=== PATIENT | male | born 1995 | race Caucasian/White ===

== ENCOUNTER 2018-06-14 23:57 | Emergency (ER) | payer MEDICAID, OTHER ==
[2018-06-14 23:58] VITALS: BMI 17.1
[2018-06-15 00:04] VITALS: BP 153/105; PULSE 93; RESP 18; TEMP 98; O2SAT 100
--- NOTE | 2018-06-15 00:15 | ED PDOC ---
HPI: Psych/Substance Abuse Time Seen by Provider: 06/15/18 00:02 Chief Complaint (Nursing): Alcohol Ingestion History Per: Patient History/Exam Limitations: no limitations Onset/Duration Of Symptoms: Mins Modifying Factor(s): Alcohol Additional Complaint(s): PAtient brought in to ER by EMS and [place] for evaluation of ETOH abuse. Patient admits to drinking alcohol but denies drugs. States he feels fine, denies any injuries or drugs. Past Medical History Reviewed: Historical Data, Nursing Documentation, Vital Signs Vital Signs: Last Vital Signs Temp 98 F 06/15/18 00:01 Pulse 93 H 06/15/18 00:01 Resp 18 06/15/18 00:01 BP 153/105 H 06/15/18 00:01 Pulse Ox 100 06/15/18 00:01 - Medical History PMH: No Chronic Diseases - Family History Family History: States: Unknown Family Hx - Immunization History Hx Tetanus Toxoid Vaccination: No Hx Influenza Vaccination: No Hx Pneumococcal Vaccination: No - Home Medications Home Medications: Ambulatory Orders Medication Instructions Recorded Ibuprofen [Motrin] 600 mg PO Q6 PRN #20 tab 07/02/14 Oseltamivir Cap [Tamiflu] 75 mg PO BID #10 cap 07/02/14 No Known Home Med 11/05/14 - Allergies Allergies/Adverse Reactions: Allergies Allergy/AdvReac Type Severity Reaction Status Date / Time No Known Allergies Allergy Verified 06/15/18 00:01 Review of Systems ROS Statement: Except As Marked, All Systems Reviewed And Found Negative Physical Exam - Reviewed Nursing Documentation Reviewed: Yes Vital Signs Reviewed: Yes - Physical Exam Appears: Positive for: Well, Non-toxic, No Acute Distress Head Exam: Positive for: ATRAUMATIC, NORMAL INSPECTION, NORMOCEPHALIC Skin: Positive for: Normal Color, Warm, DRY Eye Exam: Positive for: EOMI, Normal appearance, PERRL ENT: Positive for: Normal ENT Inspection Neck: Positive for: Normal, Painless ROM Cardiovascular/Chest: Positive for: Regular Rate, Rhythm Respiratory: Positive for: CNT, Normal Breath Sounds Gastrointestinal/Abdominal: Positive for: Normal Exam, Soft Back: Positive for: Normal Inspection Extremity: Positive for: Normal ROM Neurologic/Psych: Positive for: Alert, cvt tech II-XII, Oriented, Gait (Normal). Negative for: Motor/Sensory Deficits - ECG O2 Sat by Pulse Oximetry: 100 Pulse Ox Interpretation: Normal Medical Decision Making Medical Decision Making: Patient with ETOH abuse, however patient is alert and oriented x 3 with stead gait, able to make decisions for himself Will discharge Disposition - Clinical Impression Clinical Impression: Alcohol abuse - Patient ED Disposition Is Patient to be Admitted: No - Disposition Referrals: Alcoholics Anonymous [Outside] Disposition: Routine/Home Disposition Time: 00:30 Condition: STABLE Instructions: Alcohol Use - When Is Drinking a Problem? Forms: [employer] (I[place]ic)
== END 2018-06-15 00:25 | disposition home or self-care (01) ==
LOC: H.ER 23:57
DX: F10.10 Alcohol abuse, uncomplicated (principal)